=== PATIENT | female | born 1955 | race Caucasian/White ===

== ENCOUNTER 2017-02-07 09:44 | Emergency (ER) | payer OTHER ==
[2017-02-07 10:03] VITALS: TEMP 98.2; O2SAT 94
[2017-02-07] MEDS ORDERED: NS 1,000 ML IV ONE (10:25)
[2017-02-07] MEDS ORDERED: ONDANSETRON 4 MG/2 ML VIAL IVP ONE (10:25)
--- NOTE | 2017-02-07 11:03 | EDPHY ---
H & P Stated Complaint: hx back pain exacerbated yesterday bending over HPI/ROS: CHIEF COMPLAINT: Low back pain HISTORY OF PRESENT ILLNESS: Patient has severe low back pain that started yesterday afternoon. This was after bending over to pick up worker an item. When she stood up, she felt a sudden onset of severe pain in low back. She says that she felt a popping sensation. Since then she has had 10/10 pain. It is all in the lower back. Primarily midline. Does not radiate. No saddle anesthesia. No incontinence of bowel or bladder. No motor changes distally. No position of comfort, but does have mild improvement when laying supine without moving. Unable to stand without moving. No direct trauma injury to the back. She does have a history of previous low back pain including disc bulge. No previous surgical intervention on this. Patient is traveling from [place]. No chest or upper back pain. No other associated complaints or modifying factors. PRIOR ORTHO INJURIES: Low back pain with disc bulge ESTABLISHED ORTHOPEDIST: None REVIEW OF SYSTEMS: Ten systems reviewed and are negative unless otherwise noted in the HPI EXAMINATION General Appearance: Alert, no distress Back: normal appearance. No crepitus, step-off or deformity. No palpable fluctuance. No tenderness to palpation at any level of the cervical or thoracic spine Cardiovascular: Pulses normal throughout. Symmetric radial pulses. Brisk cap refill Neurological: A&O, sensory symmetric, strength symmetric. Patellar reflexes are symmetric at 2+. Normal proprioception of the great toes. Skin: Warm and dry, no rash Extremities: Nontender, no pedal edema. Range of motion is symmetric in lower extremities. Psychiatric: Mood and affect normal DIFFERENTIAL DIAGNOSES: Including but not limited to acute low back strain, myofascial strain, low back sprain, lumbar fracture, disc bulge MDM: 10:30 a.m. acute low back pain starting yesterday. There is no radiculopathy. neuro intact. No evidence of acute cord compression by examination. X-ray has been ordered. Pain medication has been ordered. 11:05 a.m. Lumbar x-ray as interpreted by me shows no acute fracture or significant spondylolisthesis. 11:15 a.m. I have re-evaluated the patient. She is feeling better but not significantly better. I will add prednisone, Toradol, morphine. We discussed admission for pain control versus discharge home. The patient prefers to be discharged home. I do feel she is stable to do so as she has no radiculopathy and no evidence of acute cord compression. She is traveling back home to [place] tomorrow and has a spinal specialist that she can see upon return home. 12:15 p.m. patient is feeling significantly better at this time. She still wants to be discharged home. She is still neuro intact. Provided prescription for Percocet and prednisone. She will follow up with her neurosurgeon back home in [place]. She will return here or the nearest emergency department should her symptoms change and become more painful, any saddle anesthesia, or any neuro or motor changes in the lower extremities. She is comfortable this plan and discharged home in stable condition. ED Precautions: As discussed SUPERVISION: This patient was independently evaluated without direct examination by the attending physician. Case was discussed with attending physician. Case discussed with Dr. Erickson Source: Patient, Family Exam Limitations: No limitations - Personal History Current Tetanus/Diphtheria Vaccine: Yes - Medical/Surgical History Hx Asthma: No Hx Chronic Respiratory Disease: No Hx Diabetes: No Hx Cardiac Disease: No Hx Renal Disease: No Hx Cirrhosis: No Hx Alcoholism: No Hx HIV/AIDS: No Hx Splenectomy or Spleen Trauma: No Other PMH: throid issues/back pain - Social History Smoking Status: Never smoked Constitutional: Initial Vital Signs Temperature (C) 98.2 F 02/07/17 10:01 Heart Rate 88 02/07/17 10:01 Respiratory Rate 17 02/07/17 10:01 Blood Pressure 132/71 H 02/07/17 10:01 O2 Sat (%) 94 02/07/17 10:01 O2 Delivery Mode Room Air Allergies/Adverse Reactions: nitrofurantoin [From Macrobid] Allergy (Verified 02/07/17 10:00) Home Medications: Medication Instructions Recorded ARMOUR THYROID 02/07/17 oxyCODONE HCL/ACETAMINOPHEN 1 each PO Q4-6PRN PRN #20 tablet 02/07/17 [Percocet 5-325 mg Tablet] predniSONE [Deltasone] 40 mg PO DAILY #8 tablet 02/07/17 traZODone 02/07/17 Medical Decision Making - Diagnostics Imaging Results: Imaging Impressions Lumbar Spine X-Ray 02/07/17 10:33 Impression: Negative lumbar spine radiographs. - Data Points Laboratory Results: Laboratory Results 02/07/17 10:42 02/07/17 10:42 Sodium 142 mEq/L mEq/L (134-144) Potassium 4.0 mEq/L mEq/L (3.5-5.2) Chloride 107 mEq/L mEq/L (97-110) Carbon Dioxide 27 mEq/l mEq/l (22-31) Anion Gap 8 mEq/L mEq/L (8-16) BUN 15 mg/dL mg/dL (7-23) Creatinine 0.7 mg/dL mg/dL (0.6-1.0) Estimated GFR > 60 Glucose 83 mg/dL mg/dL (70-100) Calcium 9.3 mg/dL mg/dL (8.5-10.4) Medications Given: Discontinued Medications Sodium Chloride (Ns) 1,000 mls @ 0 mls/hr IV ONCE ONE PRN Reason: Wide Open Stop: 02/07/17 10:26 Last Admin: 02/07/17 10:47 Dose: 1,000 mls Ketorolac Tromethamine (Toradol) 15 mg IVP EDNOW ONE Stop: 02/07/17 11:34 Last Admin: 02/07/17 11:44 Dose: 15 mg Morphine Sulfate (Morphine) 4 mg IVP EDNOW ONE Stop: 02/07/17 10:25 Last Admin: 02/07/17 10:45 Dose: 4 mg Morphine Sulfate (Morphine) 4 mg IVP EDNOW ONE Stop: 02/07/17 11:17 Last Admin: 02/07/17 11:40 Dose: 4 mg Ondansetron HCl (Zofran) 4 mg IVP EDNOW ONE Stop: 02/07/17 10:26 Last Admin: 02/07/17 10:45 Dose: 4 mg Prednisone (Prednisone) 60 mg PO EDNOW ONE Stop: 02/07/17 11:17 Last Admin: 02/07/17 11:40 Dose: 60 mg Departure - Departure Disposition: Home, Routine, Self-Care Clinical Impression: Acute low back pain Qualifiers: Back pain laterality: midline Sciatica presence: without sciatica Qualified Code(s): M54.5 - Low back pain Condition: Good Instructions: Acute Low Back Pain (ED) Additional Instructions: medications as discussed. Follow up with your surgeon back home. Return here or the nearest ER for sensory or motor changes as discussed. Referrals: LOLI MARTINEZ [Other] - As per Instructions Prescriptions: oxyCODONE HCL/ACETAMINOPHEN [Percocet 5-325 mg Tablet] 1 each PO Q4-6PRN PRN # 20 tablet PRN Reason: Pain, Breakthrough predniSONE [Deltasone] 40 mg PO DAILY #8 tablet
[2017-02-07] MEDS ORDERED: predniSONE 20 MG TAB PO ONE (11:16)
[2017-02-07 11:26] LABS: ANION GAP 8 mEq/L (8-16); CALCIUM 9.3 mg/dL (8.5-10.4); CARBON DIOXIDE 27 mEq/l (22-31); CHLORIDE 107 mEq/L (97-110); CREATININE 0.7 mg/dL (0.6-1.0); GLOMERULAR FILTRATION RATE > 60; GLUCOSE 83 mg/dL (70-100); SODIUM 142 mEq/L (134-144)
[2017-02-07] MEDS ORDERED: KETOROLAC 30 MG/1 ML SDV IVP ONE (11:33)
[2017-02-07 12:33] VITALS: BP 144/62; PULSE 69; RESP 18
== END 2017-02-07 12:30 | disposition home or self-care (01) ==
DX: M54.5 Low back pain (principal)
CPT/HCPCS: 96374; J1885; J2405